=== PATIENT | male | born 1990 | race Caucasian/White ===

== ENCOUNTER 2023-06-25 03:39 | Emergency (ER) | payer SELFPAY ==
[~2023-06-25] VITALS: Ht 165.1 cm; Wt 66.2 kg
[2023-06-25 04:00] VITALS: BP 150/99; PULSE 124; RESP 14; TEMP 98.4; O2SAT 100
[2023-06-25] MEDS ORDERED: BACITRACIN ZINC OINT UDPKT TOP ONE (05:15)
[2023-06-25] MEDS ORDERED: LIDOCAINE HCL/EPINEPHRINE 1%-EPI 1:100,000 20 ML VIAL INFIL ONE (05:15)
== END 2023-06-25 06:30 | disposition home or self-care (01) ==
LOC: ER 05:59
DX: S01.01XA Laceration without foreign body of scalp, initial encounter (principal); R55 Syncope and collapse; W18.39XA Other fall on same level, initial encounter; Y93.89 Activity, other specified; Y92.89 Other specified places as the place of occurrence of the external cause; Y99.8 Other external cause status
CPT/HCPCS: 70450; 72125; 12002; 99284; J3490; Z7610 ×3